=== PATIENT | male | born 1960 | race Caucasian/White ===

== ENCOUNTER 2016-06-30 16:09 | Emergency (ER) | payer OTHER ==
--- NOTE | 2016-07-01 13:03 | ER ---
ADMIT: 06/30/2016 RM/LOC: ER [facility] MR#: [id number] [address] [id number] [address] [place] [address] Emergency Room Report SEX: M AGE: 56 : 1960 DATE: 06/30/2016 HISTORY: The patient is a 56-year-old male with a past medical history of peripheral vascular disease, status post allegedly bilateral femoral artery bypass; coronary artery disease, status post two stents, on no blood thinners, came to the ER with chief complaint of sudden onset of severe pain in the right leg and right foot. The patient denies similar episodes in the past. The pain is severe and is sharp and continuous. The patient denied any headaches, chest pain, shortness of breath, palpitation, or abdominal pain. EMS could not elicit any peripheral pulse in the right lower extremity and they noticed pallor in the right lower extremity. PHYSICAL EXAMINATION: VITAL SIGNS: In the ER, the patient had blood pressure of 170/110, in severe distress, was tachycardic, afebrile. HEAD AND NECK: Noncontributory. CHEST: Clear to auscultation bilaterally, normal S1, S2 without any murmurs. ABDOMEN: Soft. EXTREMITIES: On the right leg and right foot, there is pallor comparing to the left foot, I could not feel pulses of posterior tibial and dorsal pedis on the right side, and we tried a Doppler too and we could not get the pulses. Lab was sent, EKG, also chest x-ray, Doppler ultrasound, and CT angio of the lower extremities that was requested, previous vascular surgeon Dr. Celestino Bauer in [place] was contacted, and he advised to hold on further imaging and further investigation and hold on a CT angio and just send the patient as fast as possible to [facility] for further followups and treatments and CT angiogram and possible tPA or removal of a clot per discretion. Pain was controlled, the patient was receiving IV fluid, and the patient was transferred to [facility] for further followups and treatments of right lower leg pain, peripheral vascular disease, questionable right lower extremity arterial occlusion. Nathan Smith MD/ phan JOB #: [id number] CC: Kyle Robles MD, Attending Physician Cullen Benjamin MD, Family Physician
== END 2016-06-30 18:00 | disposition short-term general hospital (02) ==
LOC: ER 16:09
DX: I73.9 Peripheral vascular disease, unspecified (principal); Z79.899 Other long term (current) drug therapy